=== PATIENT | male | born 2000 | race Caucasian/White ===

== ENCOUNTER 2023-06-22 12:24 | Emergency (ER) | payer OTHER ==
--- NOTE | 2023-06-22 12:55 | XRAY Report ---
PROCEDURE: Foot 3 View RT INDICATIONS: Trauma TECHNIQUE: 3 views of the foot were acquired. COMPARISON: None. FINDINGS: Bones: Subtle linear lucency involving fifth metatarsal base is seen on lateral view without definit e cortical disruption. Subtle nondisplaced fracture cannot be entirely excluded. No other fracture or dislocation. No suspicious bony lesions. Soft tissues: No suspicious soft tissue calcifications or masses. IMPRESSION: Subtle linear lucency involving fifth metatarsal base without cortical disruption concerning for subt le incomplete fracture versus nutrient vessel, suggest clinical correlation and radiographic follow-u p. No other fracture or dislocation is seen. Reviewed by: Johan Mcdermott MD on 06/22/2023 12:53 PM PDT Approved by: Johan Mcdermott MD on 06/22/2023 12:53 PM PDT Station ID: [id number]
--- NOTE | 2023-06-22 13:43 | ED Physician Documentation ---
History of Present Illness - Stated complaint Stated Complaint: RT FOOT INJ - Chief complaint Chief Complaint: Trauma Ext - Additonal information Additional information: 22-year-old male who is active [employer] duty presents emergency department for evaluation of acute right foot pain sustained when a floor brian rolled over his foot. Tetanus is up-to-date. Review of Systems Musculoskeletal: reports: Extremity pain PD PAST MEDICAL HISTORY - Past Medical History Past Medical History: No Cardiovascular: None Respiratory: None Neuro: None Endocrine/Autoimmune: None GI: None : None HEENT: None Psych: None Musculoskeletal: None Derm: None - Past Surgical History Past Surgical History: No - Present Medications Home Medications: Ambulatory Orders Medication Instructions Recorded Confirmed No Known Home Medications 06/22/23 06/22/23 - Allergies Allergies/Adverse Reactions: Allergies Allergy/AdvReac Type Severity Reaction Status Date / Time No Known Drug Allergies Allergy Verified 06/22/23 12:29 - Social History Does the pt smoke?: No Smoking Status: Never smoker Does the pt drink ETOH?: No Does the pt have substance abuse?: No - Immunizations Immunizations are current?: Yes PD ED PE NORMAL - General General: Alert and oriented X 3, No acute distress - Extremities Extremities: Other (Right foot with superficial abrasion over the distal fourth and fifth metatarsal region with mild surrounding ecchymosis. No pain at the base the fifth metatarsal was elicited. 2+ DP pulse. Can bear weight.) Results - Vitals Vitals: Vital Signs - 24 hr 06/22/23 12:29 Temperature 36.5 C Heart Rate 63 Respiratory 16 Rate Blood Pressure 130/60 O2 Saturation 98 Oxygen O2 Source Room air - Rads (name of study) right foot Relevant Findings:: Final report received (Subtle linear lucency involving the fifth metatarsal base without cortical disruption concerning for subtle incomplete fracture versus nutrient vessel.) PD Medical Decision Making - ED course Complexity details: d/w patient ED course: Acute right foot pain when a floor brian rolled over the foot. He does have some ecchymosis and abrasion on the dorsum of the foot laterally in the mid to distal metatarsal region. However the x-ray is concerning for an incomplete Vega fracture. Given this patient was placed in a walking boot and given crutches. Advised to be nonweightbearing until seen by [facility]. Recommend Tylenol and ibuprofen otherwise for discomfort. The usual emergent return precautions were discussed for worsening symptoms. Departure - Departure Disposition: 01 Home, Self Care Clinical Impression: Fracture of 5th metatarsal Qualifiers: Encounter type: initial encounter Fracture type: closed Fracture alignment: nondisplaced Laterality: right Qualified Code(s): S92.354A - Nondisplaced fracture of fifth metatarsal bone, right foot, initial encounter for closed fracture Condition: Stable Instructions: ED Fx Foot Comments: Víctor the x-ray of your foot suggests an incomplete proximal fifth metatarsal fracture. These types of fractures can be cumbersome to heal. You are to be nonweightbearing on this foot until you are seen and cleared by orthopedics. Please follow-up with [facility] as soon as you can. I do recommend using the crutches and the walking boot otherwise. You can take Tylenol or Motrin [id number] for discomfort. Return to the ER if you have any new or worsening symptoms.
[2023-06-22 14:09] VITALS: BP 126/62; O2SAT 100
== END 2023-06-22 14:06 | disposition home or self-care (01) ==
LOC: ED 12:24
DX: S92.354A Nondisplaced fracture of fifth metatarsal bone, right foot, initial encounter for closed fracture (principal); X58.XXXA Exposure to other specified factors, initial encounter
CPT/HCPCS: 99283

== ENCOUNTER 2023-12-31 01:59 | Outpatient (CLI) | payer OTHER | END 2023-12-31 23:59 | disposition critical access hospital (66) | LOC: EMS 01:59 | DX: R10.13 Epigastric pain (principal); M62.838 Other muscle spasm; F41.9 Anxiety disorder, unspecified | CPT/HCPCS: A0425; A0429 ==

== ENCOUNTER 2023-12-31 02:33 | Emergency (ER) | payer OTHER ==
--- NOTE | 2023-12-31 02:32 | ED Physician Documentation ---
PD HPI ABD PAIN - Stated complaint Stated Complaint: ABD PX/ANXIETY - History obtained from History obtained from: Patient, EMS - Additional information Additional information: BIBA. HPI from patient, EMS Patient c/o approximately 3 weeks of episodic midline lower anterior chest and epigastric discomfort. Patient has difficulty describing the discomfort but denies pain per se. He denies dyspnea, lightheadedness. The discomfort does not radiate. He has had increasing frequency of these episodes. There are no inciting, exacerbating, nor ameliorating factors. He has been having episodes 2- 3 times per day and he feels varying degree of anxiety when he has the episodes Review of Systems Constitutional: denies: Fever, Chills, Sweats Cardiac: denies: Palpitations, Pedal edema, Calf pain Respiratory: denies: Dyspnea GI: reports: Abdominal Pain. denies: Nausea, Vomiting PD PAST MEDICAL HISTORY - Past Medical History Past Medical History: No - Present Medications Home Medications: Ambulatory Orders Medication Instructions Recorded Confirmed Home Medications Unobtainable 12/31/23 12/31/23 [HOME MEDICATIONS UNOBTAINABLE] - Allergies Allergies/Adverse Reactions: Allergies Allergy/AdvReac Type Severity Reaction Status Date / Time No Known Drug Allergies Allergy Verified 12/31/23 02:39 PD ED PE NORMAL - Vitals Vital signs reviewed: Yes - General General: Alert and oriented X 3, No acute distress, Well developed/nourished - HEENT HEENT: Moist mucous membranes - Cardiac Cardiac: RRR, No murmur, No gallop, No rub - Respiratory Respiratory: No respiratory distress, Clear bilaterally - Abdomen Abdomen: Soft, Non tender - Extremities Extremities: No edema Results - Vitals Vitals: Oxygen O2 Source Room air - Labs Labs: Laboratory Tests 12/31/23 12/31/23 03:27 03:27 WBC 8.2 RBC 5.05 Hgb 14.9 Hct 44.3 MCV 87.7 MCH 29.5 MCHC 33.6 RDW 11.2 L Plt Count 287 MPV 10.0 Neut # (Auto) 5.1 Lymph # (Auto) 1.9 [place] # (Auto) 1.1 H Eos # (Auto) 0.1 Baso # (Auto) 0.1 Absolute Nucleated RBC 0.00 Nucleated RBC % 0.0 Sodium 138 Potassium 4.2 Chloride 106 Carbon Dioxide 26 Anion Gap 6.0 BUN 12 Creatinine 1.0 Estimated GFR (MDRD) 91 Glucose 100 Calcium 9.5 Magnesium 1.9 Total Bilirubin 0.5 AST 19 ALT 23 Alkaline Phosphatase 70 Total Protein 7.1 Albumin 4.3 Globulin 2.8 Albumin/Globulin Ratio 1.5 Lipase 11 Ethyl Alcohol < 10.0 PD Medical Decision Making - ED course Complexity details: reviewed results, re-evaluated patient, considered diffe rential, d/w patient ED course: Normal CBC, ER abdominal panel. Patient says he has been drinking 2-3 glasses of wine QHS x 3 weeks including tonight, which could be causing or contributing to symptoms. Serum ethanol level undetectable at this time. No evidence on exam of withdrawal. Etiology of symptoms is not apparent at this time. Results reviewed with patient, return precautions discussed, and I advised him to seek follow up with PCP for reevaluation, next available appointment Departure - Departure Disposition: 01 Home, Self Care Clinical Impression: Abdominal pain Condition: Good Instructions: ED Abdominal Pain Unkn Cause Male Comments: There were no concerning findings on tonight's blood tests. The cause of your symptoms is not apparent at this time, but there is no indication of a specific nor dangerous cause based on tonight's tests. As we discussed, further testing might be indicated, particularly if your symptoms persist. I recommend that you contact your primary care provider when their office is next open to arrange for the next available appointment for follow-up/reevaluation. Also, as we discussed, I recommend that you take an [id number] acid- blocking medication once per day for the next 2 weeks: specifically, either Prilosec or Nexium. I am basing this recommendation on the location of your pain, which is in proximity to your stomach; inflammation of the lining of the stomach (gastritis) is a possible explanation for your upper abdominal pain. Gastritis cannot be diagnosed on ER tests; it is reasonable to try one of these acid-blocking medications for a 2-week trial to see if this results in resolution the upper abdominal discomfort. Forms: PCP List Discharge Date/Time: 12/31/23 06:00
[2023-12-31 03:29] LABS: BASOPHILS # (AUTO) 0.1 10^3/uL (0.0-0.1); BASOPHILS % (AUTO) 0.6 %; EOSINOPHILS # (AUTO) 0.1 10^3/uL (0.0-0.7); HCT - HEMATOCRIT 44.3 % (42.0-52.0); HGB - HEMOGLOBIN 14.9 g/dL (14.0-18.0); LYMPHOCYTES # (AUTO) 1.9 10^3/uL (1.5-3.5); MEAN CORPUSCULAR HEMOGLOBIN 29.5 pg (27.0-31.0); MEAN CORPUSCULAR HGB CONC 33.6 g/dL (32.0-36.0); MEAN CORPUSCULAR VOLUME 87.7 fL (80.0-94.0); MONOCYTES # (AUTO) 1.1 10^3/uL (0.0-1.0); MONOCYTES % (AUTO) 13.3 %; NEUTROPHILS # (AUTO) 5.1 10^3/uL (1.5-6.6); NEUTROPHILS % (AUTO) 61.7 %; PLT - PLATELET COUNT 287 10^3/uL (130-450); RED BLOOD COUNT 5.05 10^6/uL (4.70-6.10); RED CELL DISTRIBUTION WIDTH 11.2 % (12.0-15.0); WHITE BLOOD COUNT 8.2 x10^3/uL (4.8-10.8)
[2023-12-31 04:42] LABS: ALBUMIN 4.3 g/dL (3.2-5.5); ALBUMIN/GLOBULIN RATIO 1.5 (1.0-2.2); ALKALINE PHOSPHATASE 70 IU/L (42-121); ALT ALANINE AMINOTRANSFERASE 23 IU/L (10-60); AST ASPARTATE AMINOTRANSFERASE 19 IU/L (10-42); BILIRUBIN,TOTAL 0.5 mg/dL (0.2-1.0); BUN - BLOOD UREA NITROGEN 12 mg/dL (6-20); CALCIUM 9.5 mg/dL (8.5-10.3); CARBON DIOXIDE - CO2 26 mmol/L (21-32); CHLORIDE 106 mmol/L (101-111); ETOH - ETHANOL < 10.0 mg/dL; GFR - MDRD 91 (>89); GLUCOSE 100 mg/dL (74-104); MAGNESIUM 1.9 mg/dL (1.7-2.3); POTASSIUM 4.2 mmol/L (3.5-4.5); SODIUM 138 mmol/L (135-145); TOTAL PROTEIN 7.1 g/dL (6.4-8.9)
[2023-12-31 04:44] LABS: LIPASE 11 U/L (11-82)
[2023-12-31 05:06] VITALS: O2SAT 97
[2023-12-31 05:55] VITALS: BP 129/77
== END 2023-12-31 06:00 | disposition home or self-care (01) ==
LOC: EDUNIT# → ED 02:33
DX: R10.13 Epigastric pain (principal)
CPT/HCPCS: 36415; 80053; 82077; 83690; 83735; 85025; 99283; 99284